=== PATIENT | female | born 1945 | race Native Hawaiian/Other Pacific Islander ===

== ENCOUNTER 2020-07-27 22:40 | Emergency (ER) | payer OTHER ==
[~2020-07-27] VITALS: Ht 149.9 cm; Wt 60.1 kg
[2020-07-27 22:40] VITALS: TEMP 97.8
[2020-07-27 23:08] LABS: PLATELET COUNT 295 K/uL (152-353)
[2020-07-28 01:22] VITALS: BP 105/43
[2020-07-28] MEDS ORDERED: ALPR0.5T24 PO (03:39)
[2020-07-28] MEDS ORDERED: BUSPIRONE HYDRO15 MG PO (03:42)
[2020-07-28] MEDS ORDERED: DOCU100C10 PO (04:18)
[2020-07-28] MEDS ORDERED: LIQUACEL PO (04:22)
[2020-07-28] MEDS ORDERED: FLUPHENAZINE25 MG/ML IM (04:35)
[2020-07-28] MEDS ORDERED: HYDR10TA47A PO (04:39)
[2020-07-28] MEDS ORDERED: LAMICTAL150 MG PO (04:41)
[2020-07-28] MEDS ORDERED: METFTAB PO (04:44)
[2020-07-28] MEDS ORDERED: [UNRECOGNIZED DRUG - OTHER] PO (04:47)
[2020-07-28] MEDS ORDERED: MULTIVITAMIN PO (04:47)
[2020-07-28] MEDS ORDERED: QUET300T PO (04:50)
[2020-07-28] MEDS ORDERED: TRILEPTAL300 MG PO (04:52)
[2020-07-28] MEDS ORDERED: ASCORBIC ACD500 MG PO (04:53)
== END 2020-07-28 01:24 | disposition other institution (70) ==
LOC: ED 22:40
PROVIDERS: Emergency Medicine Emergency Medical Services
DX: R46.89 Other symptoms and signs involving appearance and behavior (principal); F32.89 Other specified depressive episodes; Z11.59 Encounter for screening for other viral diseases; Z04.6 Encounter for general psychiatric examination, requested by authority
CPT/HCPCS: 36415; 80053; 85027; 87635; 93005; 99283; U0003

== ENCOUNTER 2020-08-05 17:29 | Inpatient (IN) | payer OTHER ==
[~2020-08-05] VITALS: Ht 149.9 cm; Wt 64.9 kg
[~2020-08-05 17:29] MED LIST: ALPR0.5T24 PO; ASCORBIC ACD500 MG PO; BUSPIRONE HYDRO15 MG PO; CLON0.5T36 PO; DOCU100C10 PO; ERTA1INJ2 IM; FLUPHENAZINE25 MG/ML IM; HYDR10TA47A PO; LAMICTAL150 MG PO; LIQUACEL PO; METFTAB PO; MULTIVITAMIN PO; OLAN10INJ IM; QUET100T2 PO; QUET300T PO; TRILEPTAL300 MG PO; [UNRECOGNIZED DRUG - OTHER] PO
[2020-08-06] VITALS (18 sets, daily range): BP systolic 111–149; BP diastolic 54–79; TEMP 98.5–102
[2020-08-06 01:04] LABS: PLATELET COUNT 194 K/uL (152-353)
[2020-08-06 01:19] LABS: POTASSIUM 3.3 mmol/L (3.6-5.2)
[2020-08-06 09:23] LABS: PLATELET COUNT 194 K/uL (152-353)
[2020-08-06 09:40] LABS: POTASSIUM 3.5 mmol/L (3.6-5.2)
[2020-08-06 16:18] LABS: POTASSIUM 3.2 mmol/L (3.6-5.2)
[2020-08-07] VITALS (23 sets, daily range): BP systolic 96–143; BP diastolic 44–74; TEMP 98.3–99.1
[2020-08-07 06:15] LABS: PLATELET COUNT 208 K/uL (152-353)
[2020-08-07 06:34] LABS: POTASSIUM 3.8 mmol/L (3.6-5.2)
[2020-08-08] VITALS (17 sets, daily range): BP systolic 98–153; BP diastolic 50–89; TEMP 98.1–99
[2020-08-08 07:12] LABS: PLATELET COUNT 253 K/uL (152-353)
[2020-08-08 07:30] LABS: POTASSIUM 3.9 mmol/L (3.6-5.2)
[2020-08-09] VITALS (23 sets, daily range): BP systolic 102–1119; BP diastolic 51–93; TEMP 97.3–99
[2020-08-09 07:11] LABS: POTASSIUM 3.6 mmol/L (3.6-5.2)
[2020-08-09 07:37] LABS: PLATELET COUNT 234 K/uL (152-353)
[2020-08-10 00:01] VITALS: TEMP 98.6
[2020-08-10 03:00] VITALS: TEMP 98.5
[2020-08-10 04:00] VITALS: TEMP 98.6
[2020-08-10 07:14] LABS: POTASSIUM 3.6 mmol/L (3.6-5.2)
[2020-08-10 07:56] LABS: PLATELET COUNT 231 K/uL (152-353)
[2020-08-10 08:00] VITALS: BP 155/72; TEMP 98.9
[2020-08-10] MEDS ORDERED: OLAN10INJ IM (17:40)
[2020-08-10] MEDS ORDERED: REMDESIVIR IV ×2 (17:42→17:43)
[2020-08-10] MEDS ORDERED: HYDR10TA47A PO (17:43)
[2020-08-10] MEDS ORDERED: SEROQUEL300 MG PO (17:45)
[2020-08-27] MEDS ORDERED: ACET-206 PO (09:35)
[2020-08-27] MEDS ORDERED: ARIPIPRAZOLE10 MG PO (09:36)
[2020-08-27] MEDS ORDERED: BUSP15TAB2 PO (09:36)
[2020-08-27] MEDS ORDERED: ASCO500T18 PO (09:36)
[2020-08-27] MEDS ORDERED: FLUP25IN8 IM (09:37)
[2020-08-27] MEDS ORDERED: COLL250O TOP (09:37)
[2020-08-27] MEDS ORDERED: MAGNSUS68 PO (09:39)
[2020-08-27] MEDS ORDERED: LAMO100T PO (09:39)
[2020-08-27] MEDS ORDERED: HALO5INJ3 IM (09:39)
[2020-08-27] MEDS ORDERED: METF500T PO (09:39)
[2020-08-27] MEDS ORDERED: OXCARBAZEPIN300 MG PO ×2 (09:40)
== END 2020-08-10 13:30 | disposition other institution (70) | DRG 177 ==
LOC: PCU 17:29
PROVIDERS: ADMIT Internal Medicine; ATTEND Internal Medicine
DX: U07.1 COVID-19 (principal); J18.8 Other pneumonia, unspecified organism; N39.0 Urinary tract infection, site not specified; E11.9 Type 2 diabetes mellitus without complications; B96.20 Unspecified Escherichia coli [E. coli] as the cause of diseases classified elsewhere
CPT/HCPCS: 36415; 80053; 85007; 85027; 93005; 94760; J0132; J1100; J1160; J1335; J1630; J1650; J2405